=== PATIENT | female | born 1990 | race Caucasian/White ===

== ENCOUNTER 2025-01-23 11:36 | Outpatient (AMB) | payer BC, SELFPAY ==
--- NOTE | 2025-01-23 12:00 | MHC.OFFVIS ---
Intake Visit Reasons: headache HPI Comments Details: The patient is a 34 year old individual presenting for evaluation and management of chronic daily headaches. The patient reports experiencing headaches for over a year, occurring on an almost daily basis. The headaches are noted to be significantly worse right before the patient's menstrual periods. Recently, the patient has also experienced episodes of word-finding difficulty. Past treatments from the primary care provider include Topamax, which was not effective, and as-needed ibuprofen. The patient also tried Ubrelvy and sumatriptan without relief. The patient's poultry dressing worker administered Botox for temporomandibular joint (TMJ) symptoms, which provided some help. The patient has a medical history of type 1 diabetes and low bone density, diagnosed as osteopenia after a pelvic fracture. The osteopenia is attributed by endocrinology to a prolonged estrogen deficit due to suppressed menses after childbirth. An MRI was previously performed at an outside facility. A visit to an eye doctor last year revealed astigmatism, but corrective contacts did not improve the headaches. The patient works as a nurse practitioner. Regarding sleep, the patient previously had difficulty staying asleep but now sleeps well with a THC with CBD gummy. The patient is not . Review of Systems Narrative Constitutional:? Complain of fatigue HEENT:? Complain of dryness and I Cardiovascular:?No chest pain, palpitations, orthopnea, PND, or leg swelling. Respiratory:?No cough, shortness of breath, wheezing, or hemoptysis. Gastrointestinal:?No nausea, vomiting, abdominal pain, diarrhea, or constipation. Genitourinary:?No dysuria, frequency, incontinence, or hematuria. Musculoskeletal:?No joint pain, stiffness, weakness, or muscle aches. Neurological:? Complain of headaches and dizziness Psychiatric:?No anxiety, depression, mood swings, sleep disturbance, or hallucinations. Endocrine:? Reports worsening headache before. Hematologic/Lymphatic:?No easy bruising, bleeding, or lymphadenopathy. Integumentary (Skin):?No rash, lesions, itching, or color changes. Allergic/Immunologic:?No seasonal allergies, hives, or recurrent infections. Const Details: Her headache diary was reviewed. She reported continuous headaches 5 to 6 times a week lasting most of the day. Headache severity was izfojvzq-dt-[id number]. It was pressure type and both sides of the head. It was behind the eyes top of the head and forehead in the back of the head and neck. It was associated with dizziness light sensitivity difficulty concentrating and fatigue. Sometime she had difficulty finding words. She wanted to be still or not moving. Bending made her headache worse. Headaches was more severe with sleep deprivation and during menstruation. Was no history of head injury. Her sister suffered from headaches. She was walking once or twice a day weak. She was also complaining of difficulty sleeping. She was drinking 1 cup of caffeinated beverage a day. She was drinking 1-2 alcoholic beverages a month. She did not smoke. She had a lumbar puncture done in 2019. She also had a brain MRI done in 2023. She never had a sleep study. She was diagnosed with type 1 diabetes and TMJ. She had tried naproxen Topamax and Botox. Botox was slightly affected. Physical Exam Neuro Other: Mental Status: Alert and oriented to person, place, and time. Normal attention. Normal spontaneous speech, fluency, and comprehension. No obvious issues with mood and memory. Affect is appropriate. Cranial Nerves: CN II: Visual everett full to confrontation, visual acuity intact. CN III, IV, : Pupils equal, round, reactive to light and accommodation. Extraocular movements are normal. CN V: Facial sensation is normal. CN VII: Facial movements symmetrical. CN VIII: Hearing intact to bedside conversation is normal. CN IX, X: Palate elevates symmetrically. CN XI: Shoulder shrug and head turn symmetrical. CN XII: Tongue midline without atrophy or fasciculations. Motor: Bulk and tone normal in all extremities. No significant muscle weakness in arms and legs. No drift. Reflexes: Deep tendon reflexes 2+ and symmetric. Plantar response down-going bilaterally. Coordination: Mesxka-xf-nnsk and irxc-vd-wjlx testing normal. No dysmetria. Gait and Station: No obvious gait abnormality. No ataxia or instability. Sensory: Intact to light touch, pinprick, and vibration. Romberg is negative. Extrapyramidal: Full facial expressions and blinking. No rigidity. Movements are appropriate with no tremor or abnormality. Speech: Normal; no dysarthria or tremor. Assessment & Plan Assessment & Plan (1) Migraine without aura: Comment: Meds tried: Topiramate, Advil, Naproxen, Fioricet, Sumatriptan Code(s): G43.009 - Migraine without aura, not intractable, without status migrainosus Category: Medical Qualifiers: Status migrainosus presence: without status migrainosus Intractability: intractable Qualified Code(s): G43.019 - Migraine without aura, intractable, without status migrainosus Plan Impression: Chronic intractable migraine without aura not responsive to multiple medicines Recommendations: 1. Reassurance and education 2. Try amitriptyline 10 mg at bedtime, side-effects were discussed. 3. Try eletriptan 40 mg half to 1 as an abortive agent 4. Sed rate and Lyme serology 5. She has asked to bring her MRI CD at next visit I discussed with the patient that the diagnosis is migraine headache, which is a chronic, long-term problem that can be managed but not cured. I explained that treatments are divided into preventative and abortive categories, and we would be using a stepwise approach for preventative therapy. I also informed the patient that insurance typically requires trials of several older medications before approving newer injectable options like CGRP inhibitors or Botox. I reassured the patient that the reported word-finding difficulty can be a symptom of severe migraines. I have prescribed amitriptyline as a preventative, advising it be taken at 8 PM and to avoid alcohol. Additionally, I prescribed eletriptan for abortive use, with instructions to try half a dose if side effects like lethargy occur. I requested the patient bring the CD of a prior brain MRI for review at the next visit. The patient will follow up in one month with the nurse practitioner who specializes in headaches. Orders: Orders Lyme IgG/IgM w/reflex to WB Today G43.019 - Migraine without aura, intractable, without status migrainosus Erythrocyte Sedimentation Rate Today G43.019 - Migraine without aura, intractable, without status migrainosus Medications: New amitriptyline 10 mg PO BEDTIME 30 tabs 0RF eletriptan 40 mg orally one a day as needed PRN; do not exceed 2 doses per 24 hrs 10 tabs 0RF migraine headache 30 days Coding Level of Care Code New Pt Level 4 (77672) Diagnoses Intractable migraine without aura and without status migrainosus G43.019 Status migrainosus presence: without status migrainosus Intractability: intractable
--- OUTSIDE RECORDS SUMMARY | 2025-01-23 14:40 | XMS_ITS | Data Portability ---
Author Organization [place] - [facility], Allergy Address [address] [address] Care Team Providers Care [employer] Name Role Phone ARELY MARTINEZ Primary Care Provider Assessment No assessment recorded. Plan of Treatment Reminders Order Date Submit Date Provider Last Modified By Organization Details Last Modified Time Details Appointments None recorded. Lab None recorded. Referral None recorded. Procedures None recorded. Surgeries None recorded. Imaging None recorded. Medication Orders prednisone 10 mg tablet 2024 025 [facility]acy #[id number], [address] [place], [address], 5 14:30:13 doxycycline hyclate 100 mg tablet 2024 025 [facility] #[id number], [address] [place], [address], 5 14:30:12 clotrimazol e 1 % topical solution 2024 025 [facility] #[id number], [address] [place], [address], 5 14:30:13 Patient TargetsNo targets recorded. Patient InstructionsNo instructions recorded. Reason for Referral None Reported. Results Created Date Observation Date Name Description Value Unit Range Abnormal Flag Note LastModifiedBy Organization Detail LastModifiedTime 08/09/1902/03/2024 MRI, brain , w/wo contr ast No observ ation record ed. [email or web address] Not Available 2024 15:05:28 Result Notes None recorded. Problems Name Problem SNOMED Code Status Onset Date Resolution Date Notes Provider Name and Address Organization Details Recorded Time Abnormal auditory perceptio n 63260550 Active 2014 Abnormal auditory perceptio n, unspecifi ed; Note: Date Diagnosed : 08/15/2014 2:01 PM (388.40) Not Available [facility] 4 03:06:37 Localized enlarged lymph nodes 747201431 Active 2018 Localized enlarged lymph nodes; Note: Date Diagnosed : 03/23/2018 5:05 PM (R59.0) Not Available [facility] 4 03:06:37 Infective otitis externa of right ear 47759161781 46851 Active 2019 Other infective otitis externa, right ear; Note: Date Diagnosed : 07/30/2019 4:36 PM (H60.391) Not Available [facility] 4 03:06:36 Otitis externa of right external auditory canal caused by fungus 85365058493 54520 Active 2024 RACHELLE ARBOLEDA MD [address] [facility],[place] [address], [place], [address] , [place] - [facility] [place] 14:26:40 Atypical facial pain 83885691 Active 2024 RACHELLE ARBOLEDA MD [address] [place] [address],[place] [address], [place], [address] , [place] - [facility] 14:26:50 Headache 59387751 Active 2024 RACHELLE ARBOLEDA MD [address] [place] [address],[place] [address], [place], [address] , [place] - [facility] 14:27:02 Chronic maxillary sinusitis 28858307 Active 2024 RACHELLE ARBOLEDA MD [address] [place] [address],[place] [address], [place], [address] , [place] - [facility] 14:27:11 Chronic mycotic otitis externa 270845426 Active 2024 RACHELLE ARBOLEDA MD [address] [place] [address], [place], [address] , [facility] - [facility] 14:28:30 Dermal mycosis 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 Active 2024 RACHELLE ARBOLEDA MD [address] [place] [address], [place], [address] , [facility] - [facility] 14:28:30 Candidal otitis externa 18803153 Active 2024 RACHELLE ARBOLEDA MD [address] [place] [address], [place], [address] , [facility] - [facility] 14:28:30 Notes:Other chronic suppurat khalif otitis media, unspecified ear Note: Date Diagnosed: 02/22/2019 10:11 AM (H66.3X9) Note: Date Diagnosed: 02/22/2019 10:11 AM (H66.3X9) Problem Notes None recorded. Procedures Surgical History Date Name Laterality Status Provider Name and Address Organization Details Recorded Time 08/02/19 NasalEndoscopy _DP completed RACHELLE ARBOLEDA MD [address] [place] [address], [place], [address], [facility] - [facility] 08/01/2024 14:25:54 section completed Jenn Francois [facility] 08/01/2024 12:33:40 extraction of wisdom tooth completed Jenn Francois [place] - [facility] 08/01/2024 12:33:58 Imaging Results None recorded. Procedure Notes None recorded. Medical Equipment None Reported. Allergies No known drug allergies Medications Name Sig Start Date Stop Date Status Note LastModified by Organization Details LastModified Time prednison e 10 mg tablet TAKE 4 TABS DAILY FOR 3 DAYS, 2 TABS DAILY FOR 3 DAYS, 1 TAB DAILY FOR 3 DAYS, THEN STOP active Not Available Not Available No t Available azithromy lisa 250 mg tablet TAKE 2 TABS BY MOUTH TODAY THEN 1 TABS DAILY FOR 4 DAYS 08/01 completed Not Available Not Available Not Available Humalog U-100 Insulin 100 unit/mL subcutane ous solution USE IN INUSLIN PUMP FOR DIABETES MELLITUS TYPE 1. (MAX DOSE = 100 UNITS/DA Y). 10 ML VIALS active Not Available Not Available No t Available clotrimaz ole 1 % topical solution APPLY 4 DROPS TO THE AFFECTED EAR 3 TIMES A DAY FOR 2 WEEKS active Not Available Not Available No t Available Novolog U-100 Insulin aspart 100 unit/mL subcutane ous solution active Not Available Not Available Not Available doxycycli ne hyclate 100 mg tablet TAKE 1 TABLET BY MOUTH TWICE A DAY FOR 10 DAYS active Not Available Not Available No t Available Vitamin 27 mg iron-0.8 mg tablet 2018 active Medicati on ID: [id number] D uration Value: 90 Brand Name: Vitamin Send Method: E-Prescr ibed Sub s Allowed: subs OK Speci al Instruct ion: TAKE 1 TABLET BY MOUTH DAILY Me dication GenericN ibeth: Vitamin Not Available Not Available Not Available Ciprodex 0.3 %-0.1 % ear drops,maria eugenia pension Instill 4 drop twice a day as directed 08/01 completed Medicati on ID: [id number] D uration Value: 14 Prescri bed By Name: DELMY De Anda nd Name: Ciprodex Send Method: E-Prescr ibed Sub s Allowed: subs OK Medic ationGen ericName : Ciprodex Not Available Not Available Not Available bupropion HCl XL 150 mg 24 hr tablet, extended release TAKE 1 TABLET BY MOUTH EVERY DAY 08/01 completed Not Available Not Available Not Available DermOtic Oil 0.01 % ear drops 5 drop 08/01 completed Medicati on ID: [id number] P laurel d By Name: Jaja Cox nd Name: DermOtic Oil Send Method: E-Prescr ibed Sub s Allowed: subs OK Medic ationGen ericName : DermOtic Oil Not Available Not Available Not Available Flonase Allergy Relief active Not Available Not Available Not Available Vitals Date Recorded Body height Body mass index (BMI) Body weight Provider Name and Address Organization Details Last Updated DateTime 08/01/2024 162.56 cm 22.3 kg/m2 41863.01 g Jenn Francois [place] - [facility] 08/01/2024 12:32:08 Social History None recorded. Functional Status None recorded. Mental Status None recorded. Family History Nothing Reported. Medical History Condition Response Diabetes Y Migraines Y Gynecological HistoryNo gynecological history recorded. Obstetrics History GPAL:G 0 P 0 0 0 0 Past Encounters Encounter ID Performer Location Encounter Start Date Encounter Closed Date Diagnosis/Indication Diagnosis SNOMED-CT Code Diagnosis ICD10 Code Diagnosis IMO Codes Diagnosis Note [id number] RACHELLE ARBOLEDA MD [facility] on [address] [place] [address] 08/01/2024 10:08:43 08/01/2024 15:17:44 Otitis externa of right external auditory canal caused by fungus [id number] 842603 B36.9 H62.41 [id number] Will treat with clotrimazo le drops. Atypical facial pain [address] is negative for sinusitis her facial pain may be more due to trigeminal neuralgia or other neurologic cause. Headache 15040836 R51.9 G89.29 [id number] May be due to migraine. I recommend she discuss with her primary care doctor referral to a headache clinic or to see a neurologis t. Chronic ma xillary sinusitis 21519128 J32.0 2493 Nasal endoscopy was negative for purulence and polyps. Given her MRI evidence of sinusitis I will obtain a dedicated sinus CT. Prior to this I will treat with maximal medical therapy including prednisone and doxycyclin e. I discussed the risks of prednisone including avascular hip necrosis as well as it affects on blood sugar. She is a type I diabetic and I told her if she is not able to keep her sugars in range with increased insulin to stop the prednisone . After her course of maximal medical therapy we will obtain a CT scan to assess for residual sinusitis as the cause of her facial pain. I do think her headache is a separate cause. Chronic my cotic otitis externa 144724406 H60.399 Dermal mycosis 53827648 B36.9 Candidal o titis externa 38498273 B37.84 Health Concerns Section Related Observation LastModified by Organization Detai ls LastModified Time None Recorded Concern Status LastModified by Organization Details LastModified Time None Recorded Advance Directives Directive None Recorded Payers Insurance Date Sequence Insurance Name Policy Number Policy Treviño Covered Member ID Treviño Member ID Guarantor Name 11/09/2024 1 [facility] Niurka Gaspar [id number] Niurka Arreoladis 08/01/2024 1 [facility] [id number] Corey Gaspar [id number] Niurka Arreoladis 11/09/2024 1 [facility] [id number] Niurka Gaspar [id number] Niurka Gaspar Notes Date Note Type Note Provider Name and Address Organization Details Recorded Time 08/01/2024 text/html ROS as noted in the HPI She initially presented with right-sided hearing loss to her primary care provider. Her hearing loss improved and she occasionally had some itching in the ear and clears black debris from her ear canal. Due to the hearing loss and a history of headaches and facial pain an MRI of the brain with and without contrast was obtained which was negative for retrocochlear pathology but did show mild bilateral maxillary sinusitis. She continues to have bilateral maxillary facial pain. She has a history of TMJ and has had multiple Botox injections which did not help. She has chronic headache and has been treated at times for migraine but the diagnosis of her headache remains unknown. She has not seen neurology. RACHELLE ARBOLEDA MD [address] [place] [address], [place], [address], [place] - [facility] 08/01/2024 14:30:13 OBGyn Episode No OBEpisode recorded.
== END 2025-01-23 12:19 | disposition home or self-care (01) ==
LOC: HO.HSM 11:36
PROVIDERS: PCP Nurse Practitioner Primary Care; Visit Provider Psychiatry & Neurology Neurology
DX: G43.019 Migraine without aura, intractable, without status migrainosus (principal)
CPT/HCPCS: 99204